=== PATIENT | female | born 1990 | race Two or more races ===

== ENCOUNTER 2016-12-22 16:11 | Inpatient (IN) | payer OTHER ==
[2016-12-22] MEDS ORDERED: RINGERS SOLUTION,LACTATED 1,000 ML IV PRN (16:39)
[2016-12-22] MEDS ORDERED: RINGERS SOLUTION,LACTATED 300 ML IV ONE (16:39)
[2016-12-22] MEDS ORDERED: OXYTOCIN/NORMAL SALINE 20 UNIT/1,000 ML RTUINJ ONE (16:39)
[2016-12-22] MEDS ORDERED: LIDOCAINE 1% INJ-PF (10 MG/ML) 30 ML SDV ONE (16:39)
[2016-12-22] MEDS ORDERED: MISOPROSTOL 0.2 MG TABLET ONE (16:39)
[2016-12-22] MEDS ORDERED: ZOLPIDEM TARTRATE 5 MG TABLET PO PRN (16:51)
[2016-12-22] MEDS ORDERED: OXYTOCIN/NORMAL SALINE 1,000 ML IV PRN (16:51)
[2016-12-22] MEDS ORDERED: ACETAMINOPHEN WITH CODEINE #3 TABLET PO PRN ×2 (16:51)
[2016-12-22] MEDS ORDERED: DIBUCAINE 1% OINTMENT 28 GM TP PRN (16:51)
[2016-12-22] MEDS ORDERED: DIPH/PERTUSS(ACELL)/TETANUS VAC/PF 0.5 ML SYR (>=10YO) IM PRN (16:51)
[2016-12-22] MEDS ORDERED: MEASLES,MUMPS&RUBELLA VACC/PF 0.5 ML VIAL SUBCUT PRN (16:51)
[2016-12-22] MEDS ORDERED: BENZOCAINE/MENTHOL AEROSOL SPRAY 56 ML TOP PRN (16:51)
[2016-12-22 17:10] LABS: ABSOLUTE LYMPHOCYTES (AUTO) 2.7 10^3/uL (0.5-4.7); ABSOLUTE MONOCYTES (AUTO) 1.2 10^3/uL (0.1-1.4); ABSOLUTE NEUT (AUTO) 10.7 10^3/uL (1.7-8.2); BASOPHILS % (AUTO) 0.3 % (0-2); EOSINOPHILS % (AUTO) 0.1 % (0-6); HEMATOCRIT 36.4 % (36.0-47.0); HGB HCT DIFFERENCE -0.4; LYMPHOCYTES % (AUTO) 18.6 % (13-45); MEAN CORPUSCULAR HEMOGLOBIN 31.3 pg (27.0-33.4); MEAN CORPUSCULAR VOLUME 95 fl (80-97); RED BLOOD COUNT 3.83 10^6/uL (3.72-5.28); RED CELL DISTRIBUTION WIDTH 13.9 % (11.5-14.0); WHITE BLOOD COUNT 14.6 10^3/uL (4.0-10.5)
--- NOTE | 2016-12-22 18:00 | L&D Flow Sheet ---
LD Flowsheet Datetime Report Generated by CPN: 12/22/2016 18:00 Datetime: 12/22/2016 17:42 Vital Signs NBP Sys/Nevaeh/Mean (mmHg): 192 (QS system process) : 72 (QS system process) : 103 (QS system process) Pulse: 59 (QS system process) Datetime: 12/22/2016 17:35 Comments: FHTs 90s (Dorita Rucker RN) Datetime: 12/22/2016 17:30 Uterine Activity Monitor Mode: External; Palpation (Dorita Rucker RN) Frequency (min): 1-2 (Dorita Rucker RN) Quality: Moderate to Strong (Dorita Rucker RN) Duration (sec): 60-90 (Dorita Rucker RN) Duration Criteria: Less than Two 120 Second Contractions (Dorita Rucker RN) Resting Tone (Palpate): Relaxed (Dorita Rucker RN) Comments: FHTs in 90s (Dorita Rucker RN) Stage 2 Pushing: Coached on Pushing (Dorita Rucker RN) Pushing Position: Pushing with Contractions; Pushing Left Side (Dorita Rucker RN) Pushing Progress: Descent with Pushing (Dorita Rucker RN) Datetime: 12/22/2016 17:24 Actions for Decelerations: IV Bolus (Dorita Rucker RN) Vaginal Exam Dilatation (cm): 10.0 (Dorita Rucker RN) Effacement (%): 100 (Dorita Rucker RN) Station: 2 (Dorita Rucker RN) Exam by: Dr Eloy (Dorita Rucker, RN) Stage 2 Pushing: Coached on Pushing; Urge to Push (Dorita Rucker RN) Pushing Position: Pushing with Contractions (Dorita Rucker RN) Pushing Progress: Descent with Pushing (Dorita Rucker RN) Preparation for Delivery: Setup for Delivery (Dorita Rucker RN) Datetime: 12/22/2016 17:22 Vaginal Exam Dilatation (cm): 9.5 (Dorita Rucker RN) Effacement (%): 100 (Dorita Rucker, RN) Station: 2 (Dorita Rucker, RN) Exam by: Dr Eloy (Dorita Rucker, RN) Communication Communication Comments: Dr Eloy at bedside (Dorita Rucker, RN) Datetime: 12/22/2016 17:21 Communication Communication Comments: RN and provider to remain at bedside throughout pushing continuously monitoring FHTs and contractions (Dorita Rucker, RN) Datetime: 12/22/2016 17:01 Patient Care Patient Position/Activity: Left Lateral (Dorita Rucker, RN) Datetime: 12/22/2016 17:00 Uterine Activity Monitor Mode: External; Palpation (Dorita Rucker, RN) Frequency (min): 1-3 (Dorita Rucker, RN) Quality: Moderate (Dorita Rucker, RN) Duration (sec): 60-100 (Dorita Rucker, RN) Resting Tone (Palpate): Relaxed (Dorita Rucker, RN) Assessment A Monitor Mode: External US (Dorita Rucker, RN) FHR Baseline Rate : 125 (Dorita Rucker, RN) Variability: Moderate 6-25 bpm (Dorita Rucker, RN) Accelerations: None (Dorita Rucker, RN) Decelerations: Early (Dorita Rucker, RN) Datetime: 12/22/2016 16:41 Vital Signs NBP Sys/Nevaeh/Mean (mmHg): 138 (QS system process) : 88 (QS system process) : 109 (QS system process) Pulse: 59 (QS system process) Datetime: 12/22/2016 16:39 Respirations: 18 (Dorita Rucker, RN) Temperature (F): 98.0 (Dorita Rucker, RN) Temperature (C): 36.7 (QS system process) Datetime: 12/22/2016 16:24 Vaginal Exam Dilatation (cm): 7.5 (Dorita Rucker RN) Effacement (%): 100 (Dorita Rucker RN) Station: -2 (Dorita Rucker RN) Exam by: Keyona Hsu CNM (Dorita Rucker RN) Datetime: 12/22/2016 16:23 Membrane Status: Ruptured (Dorita Rucker RN) Membranes Ruptured Date/Time: 12/22/2016 16:23 (Dorita Rucker RN) Membranes Rupture Method: Spontaneous (Dorita Rucker RN) Amniotic Fluid Color: Clear (Dorita Rucker RN) Amniotic Fluid Amount: Moderate (Dorita Rucker RN) Amniotic Fluid Odor: Normal (Dorita Rucker RN) Vaginal Bleeding: Normal Show (Dorita Rucker RN)
[2016-12-22] MEDS ORDERED: IBUPROFEN 800 MG TABLET ONE (18:07)
--- NOTE | 2016-12-22 19:14 | Delivery Summary ---
Del Sum A-C Datetime Report Generated by CPN: 12/22/2016 19:13 ADMISSION DATA Chief Complaint: Uterine Contractions; Suspected Ruptured Membranes Indication for Induction: Not Applicable Admission Impression: Term, Intrauterine ; Ruptured Membranes Admit Provider Comments: anticipate vaginal delivery soon. may attempt epidural if able to hydrate and labs back before delivery DELIVERY PERSONNEL Delivery Doctor:: Kamilah Lyons MD Labor and Delivery Nurse:: Dorita Rucker RNatm servicer Nurse:: Latoya Marie RN Statistical Programmer Analyst/MULTIMEDIA DESIGNER: Monica Gabriel, ST MATERNAL INFORMATION Delivery Anesthesia: None Medications After Delivery: Pitocin Bolus-Please Comment; Pitocin Drip 20 Units/1000ml NSS Estimated Blood Loss (ml): 200 Maternal Complications: Precipitous Labor (<3hrs) LABOR SUMMARY EDC: 12/27/2016 00:00 No. Babies in Womb: 1 Attempted: No Labor Anesthesia: None LABOR INFORMATION Reason for Induction: Not Applicable Onset of Labor: 12/22/2016 14:15 Complete Dilatation: 12/22/2016 17:24 Oxytocin: N/A Group B Beta Strep: negative Antibiotics # of Doses: 0 Antibiotics Time of Last Dose: 0 Steroids Given: None Reason Steroids Not Administered: Not Applicable MEMBRANES Membranes Rupture Method: Spontaneous Rupture of Membranes: 12/22/2016 16:23 Length of Rupture (hr): 1.28 Amniotic Fluid Color: Clear Amniotic Fluid Amount: Moderate Amniotic Fluid Odor: Normal STAGES OF LABOR Stage 1 hr: 3 Stage 1 min: 9 Stage 2 hr: 0 Stage 2 min: 16 Stage 3 hr: 0 Stage 3 min: 4 Total Time in Labor hr: 3 Total Time in Labor min: 29 VAGINAL DELIVERY Episiotomy: None Laceration Extension: Second Degree Laceration Type: Perineal; Vaginal Other Laceration: 1st degree labial Laceration Repair: Yes Laceration Repair Note: deep 2nd degree vaginal and perineal lac repaired with 2-0 chromic in normal fashion (Annotations: Data stored by [facility] on behalf of user) CSECTION DELIVERY Primary Indication: N/A Secondary Indication: N/A CSection Incidence: N/A Labor: N/A Elective: N/A CSection Incision: N/A BABY A INFORMATION Delivery Date/Time: 12/22/2016 17:40 Method of Delivery: Vaginal Born in Route : No : N/A Forceps: N/A Vacuum Extraction: N/A Shoulder Dystocia : No PRESENTATION/POSITION BABY A Presentation: Cephalic Cephalic Presentation: Vertex Vertex Position: Left Occipital Anterior Breech Presentation: N/A PLACENTA INFORMATION BABY A Placenta Delivery Time : 12/22/2016 17:44 Placenta Method of Delivery: Spontaneous Placenta Status: Delivered SCORES BABY A Heart Rate 1 min: >100 bpm Resp Effort 1 min: Good Cry Reflex Irritability 1 min: Cough or Sneeze or Pulls Away Muscle Tone 1 min: Active Motion Color 1 min: Body [place], Extremities Blue Resuscitation Effort 1 min: N/A SCORE 1 MIN: 9 Heart Rate 5 min: >100 bpm Resp Effort 5 min: Good Cry Reflex Irritability 5 min: Cough or Sneeze or Pulls Away Muscle Tone 5 min: Active Motion Color 5 min: Body [place], Extremities Blue SCORE 5 MIN: 9 INFORMATION BABY A Gestational Age at Delivery: 39.2 Gestational Status: Full Term- 39- 40.6 Weeks Outcome : Liveborn Condition : Stable Infant Sex: Male IDENTIFICATION BABY A Infant Verification Date/Time: 12/22/2016 18:03 ID Band Number: [id number] Mother's Name Verified: Yes RN Verifying : D Bellavance RNC Additional Verifying Personnel: K Klaus RNC WEIGHT/LENGTH BABY A Infant Birthweight (gm): 3320 Weight (lb): 7 Weight (oz): 5 Infant Length (in): 20.00 Length (cm): 50.80 CORD INFORMATION BABY A No. Cord Vessels: 3 Nuchal Cord : N/A Cord Blood Taken: Yes-For Eval (Mom's Blood Type - or O+) Suction: Mouth; Nose ASSESSMENT BABY A Infant Complications: Extended Bradycardia Physical Findings at Delivery: Within Normal Limits Respirations: Appears Normal Skin to Skin: Yes Skin to Skin Time (min): 60 Tree Scout/ALS Called : No Infant Care By: Jefferson Marie RN Transferred To: Remains with Mother BABY B INFORMATION : N/A
--- NOTE | 2016-12-22 20:41 | Admission Physical ---
Datetime Report Generated by CPN: 12/22/2016 20:41 CURRENT ADMISSION Chief Complaint: Uterine Contractions; Suspected Ruptured Membranes Indication for Induction: Not Applicable Admit Plan: Admit to Unit; Initiate Labor Protocol; Initiate Labor Augmentation Protocol ALLERGIES Medication Allergies: No Medication Allergies: No Known Allergies (12/22/2016) Latex: No Latex Allergies OBSTETRICAL HISTORY EDC: 12/27/2016 00:00 : 1 Para: 0 Gestational Diabetes: No Rh Sensitization: No Incompetent Cervix: No BENJIE: No Infertility: No ART Treatment: No Uterine Anomaly: No IUGR: No Hx Previous C/S: No Macrosomia: No Hx Loss/Stillborn: No PIH: No Hx : No Placenta Previa/Abruption: No Depression/PP Depression: No PTL/PROM: No Post Hemorrhage: No Current Procedures: Ultrasound; NST Obstetrical History Comments: G1: current SEE RECORDS Alcohol: No Marijuana : No Cocaine: No Other Illicit Drugs: No Cigarettes: Former Smoker. [id number] MEDICAL HISTORY Diabetes: No Blood Transfusion: No Pulmonary Disease (Asthma, TB): No Breast Disease: No Hypertension: No Typewriter Operator Automatic Surgery: No Heart Disease: No Hosp/Surgery: No Autoimmune Disorder: No Anesthetic Complications: No Kidney Disease: No Abnormal Pap Smear: No Neuro/Epilepsy: No Psychiatric Disorders: No Other Medical Diseases: No Hepatitis/Liver Disease: No Significant Family History: No Varicosities/Phlebitis: No Trauma/Violence : No Thyroid Dysfunction: No Medical History Comments: anemia INFECTIOUS HISTORY Gonorrhea: No Genital Herpes: No Chlamydia: No Tuberculosis: No Syphilis: No Hepatitis: No HIV/AIDS Exposure: No Rash or Viral Illness: No HPV: No PHYSICAL EXAM General: Normal HEENT: Normal Neurologic: Normal Thyroid: Normal Heart: Normal Lungs: Normal Breast: Normal Back: Normal Abdomen: Normal Genitourinary Exam: Normal Extremities: Normal DTRs: Normal Pelvic Type: Adequate Vital Signs: Reviewed VAGINAL EXAM Dilatation: 7 Effacement: 90 Station: -1 MEMBRANES Pooling: Positive Membranes: Ruptured Amniotic Fluid Color: Clear FETUS A EGA: 39.2 Monitoring: External US FHR- Baseline: 140 Variability: Moderate 6-25bpm Accelerations: 10X10 FHR Category: Category I Estimated Weight (gm): 3400 Presentation: Vertex Admit Comment: anticipate vaginal delivery soon. may attempt epidural if able to hydrate and labs back before delivery PLANS FOR LABOR AND DELIVERY Labor and Delivery: None Pain Management: Epidural Feeding Preference: Both Benefit of Breast Feed Discussed: Yes Circumcision: No INFORMED CONSENT Signature: with User ID: [email or web address]
[2016-12-22] MEDS: DOCUSATE SODIUM 100 MG CAPSULE PO SCH (22:27)
[2016-12-22] MEDS: FERROUS SULFATE 325 MG TABLET PO SCH (22:27)
[2016-12-22 22:52] LABS: APPEARANCE,URINE CLOUDY; BILIRUBIN,URINE NEGATIVE (NEGATIVE); GLUCOSE, URINE NEGATIVE (NEGATIVE); KETONES,URINE NEGATIVE (NEGATIVE); LEUKOCYTE ESTERASE,URINE SMALL (NEGATIVE); NITRITE,URINE NEGATIVE (NEGATIVE); PROTEIN,URINE 100 mg/dL (NEGATIVE); URINE SPECIFIC GRAVITY 1.008; UROBILINOGEN,URINE NEGATIVE mg/dL (<2.0)
[2016-12-22 23:20] LABS: URINE BARBITURATES SCREEN NEGATIVE; URINE METHADONE SCREEN NEGATIVE; URINE OPIATES LOW NEGATIVE; URINE PHENCYCLIDINE SCREEN NEGATIVE
[2016-12-23] MEDS: IBUPROFEN 800 MG TABLET PO SCH ×3 (01:25→17:37)
--- NOTE | 2016-12-23 07:00 | L&D Flow Sheet ---
LD Flowsheet Datetime Report Generated by CPN: 12/23/2016 07:00 Datetime: 12/22/2016 20:26 NBP Sys/Nevaeh/Mean (mmHg): 113 (QS system process) : 60 (QS system process) : 80 (QS system process) Pulse: 83 (QS system process) Respirations: 16 (Fidelina Davis RN) Temperature (F): 98.3 (Fidelina Davis RN) Temperature (C): 36.8 (QS system process) Temperature Route: Oral (Fidelina Davis RN) Pain Scale: 1 (Fidelina Davis RN) Pain Presence: Intermittent (Fidelina Davis RN) Pain Type: Dull (Fidelina Davis RN) Pain Location: Perineum (Fidelina Davis RN) Datetime: 12/22/2016 19:30 Pain Scale: 2 (Fidelina Davis RN) Pain Presence: Constant (Fidelina Davis RN) Pain Type: Cramping (Fidelina Davis RN) Pain Location: Abdomen; Perineum (Fidelina Davis RN) Pain Relief Measures: Comfort Measures (Fidelina Davis RN) Datetime: 12/22/2016 19:00 Stage of : Recovery (Dorita Rucker RN) Pain Scale: 3 (Dorita Rucker RN) Pain Presence: Constant (Dorita Rucker RN) Pain Type: Burning; Cramping; Ache (Dorita Rucker RN) Pain Location: Perineum (Dorita Rucker RN)
[2016-12-23 07:40] LABS: HEMATOCRIT 32.5 % (36.0-47.0); HEMOGLOBIN 10.9 g/dL (12.0-15.5); HGB HCT DIFFERENCE 0.2; MEAN CORPUSCULAR HEMOGLOBIN 31.6 pg (27.0-33.4); MEAN CORPUSCULAR HGB CONC 33.4 g/dL (32.0-36.0); MEAN CORPUSCULAR VOLUME 95 fl (80-97); RED BLOOD COUNT 3.44 10^6/uL (3.72-5.28); WHITE BLOOD COUNT 17.3 10^3/uL (4.0-10.5)
[2016-12-23] MEDS: PRENATAL VITAMIN W-O CA NO5/FE FUMARATE/FA CAPSULE PO SCH (10:15)
[2016-12-23] MEDS: DOCUSATE SODIUM 100 MG CAPSULE PO SCH ×2 (10:15→17:37)
[2016-12-23] MEDS: FERROUS SULFATE 325 MG TABLET PO SCH ×2 (10:15→17:37)
[2016-12-23] MEDS: SENNOSIDES/DOCUSATE 8.6-50 MG 1 EACH TABLET PO SCH (10:17)
--- NOTE | 2016-12-23 11:50 | PDOC PROGRESS REPORT ---
Subjective-OB Subjective: Post Delivery Day: 26 year old. Denies any needs at this time. Pt doing well, no concerns. She reports light bleeding, regular diet and voiding without difficulty. Physical Exam (OB) Vital Signs: Temp Pulse Resp BP Pulse Ox 98.1 F 49 L 15 112/59 L 100 12/23/16 07:26 12/23/16 07:26 12/23/16 07:26 12/23/16 07:26 12/23/16 07:26 Intake & Output 12/22/16 12/23/16 12/24/16 06:59 06:59 06:59 Weight 66.35 kg - Lochia Lochia Amount: Small 10-25 ml Lochia Color: Rubra/Red - Abdomen Description: Tender, Soft Hernia Present: No Fundal Description: Firm, Midline Fundal Height: u/u - u/2 Objective-Diagnostic Laboratory: 12/23/16 07:14 12/22/16 12/22/16 12/22/16 16:47 16:47 22:30 WBC 14.6 H RBC 3.83 Hgb 12.0 Hct 36.4 MCV 95 MCH 31.3 MCHC 33.0 RDW 13.9 Plt Count 257 Seg Neutrophils % 73.0 Lymphocytes % 18.6 Monocytes % 8.0 Eosinophils % 0.1 Basophils % 0.3 Absolute Neutrophils 10.7 H Absolute Lymphocytes 2.7 Absolute Monocytes 1.2 Absolute Eosinophils 0.0 Absolute Basophils 0.0 Urine Color RED Urine Appearance CLOUDY Urine pH 6.0 Ur Specific [place] 1.008 Urine Protein 100 H Urine Glucose (UA) NEGATIVE Urine Ketones NEGATIVE Urine Blood LARGE H Urine Nitrite NEGATIVE Ur Leukocyte Esterase SMALL H Blood Type O POSITIVE Antibody Screen NEGATIVE 12/23/16 07:14 WBC 17.3 H RBC 3.44 L Hgb 10.9 L Hct 32.5 L MCV 95 MCH 31.6 MCHC 33.4 RDW 14.0 Plt Count 226 Seg Neutrophils % Lymphocytes % Monocytes % Eosinophils % Basophils % Absolute Neutrophils Absolute Lymphocytes Absolute Monocytes Absolute Eosinophils Absolute Basophils Urine Color Urine Appearance Urine pH Ur Specific [place] Urine Protein Urine Glucose (UA) Urine Ketones Urine Blood Urine Nitrite Ur Leukocyte Esterase Blood Type Antibody Screen Assessment and Plan(PN) - Assessment and Plan (1) Vaginal delivery Is this a current diagnosis for this admission?: Yes - Time Spent with Patient Time with patient: Less than 15 minutes Medications reviewed and adjusted accordingly: Yes - Disposition Anticipated Discharge: Home Within: within 24 hours
--- NOTE | 2016-12-23 18:01 | L&D Current Admission ---
Current Admit Datetime Report Generated by CPN: 12/23/2016 18:00 ADMISSION INFORMATION Reason for Admission: Onset of Labor (12/22/2016 16:32:Dorita Rucker RN) Chief Complaint: Contractions (12/22/2016 16:30:Dorita Rucker RN) Method of Arrival: Ambulatory (12/22/2016 16:32:Dorita Rucker RN) Admitted From: Home (12/22/2016 16:32:Dorita Rucker RN) Reason for Induction: Not Applicable (12/22/2016 16:32:Dorita Rucker RN) Records Available: Yes (12/22/2016 16:32:Dorita Rucker RN) General Admission Information: Reviewed (12/22/2016 16:32:Dorita Rucker RN) General Admission Reviewed By: Keyona Rucker RN (12/22/2016 16:32:Dorita Rucker RN) BELONGINGS/ADVANCED DIRECTIVES Valuables/Personal Effects: None (12/22/2016 16:32:Dorita Rucker RN) Other Belongings: see consents (12/22/2016 16:32:Dorita Rucker RN) Disposition of Belongings: Kept with Patient (12/22/2016 16:32:Dorita Rucker RN) Advance Direct for Healthcare: No, and Wants No Information (12/22/2016 16:32:Dorita Rucker RN) Durable Power of Paralegal Assistant: No (12/22/2016 16:32:Dorita Rucker RN) Living Will: No (12/22/2016 16:32:Dorita Rucker RN) Organ Donor: Yes (12/22/2016 16:32:Dorita Rucker RN) Pt Rights Information Given: Yes (12/22/2016 16:32:Dorita Rucker RN) Pt Understands Pt Rights: Yes (12/22/2016 16:32:Dorita Rucker RN) LEARNING ASSESSMENT Knowledge Level: Understands L_D Process; Understands Care Activities; Had Pre-Hospital Education (12/22/2016 16:32:Dorita Rucker RN) Barriers to Learning: None (12/22/2016 16:32:Dorita Rucker RN) Learning Readiness: Motivated (12/22/2016 16:32:Dorita Rucker RN) Learns Best By: 1 to 1 Instruction (12/22/2016 16:32:Dorita Rucker RN) Learning Needs: Labor and Delivery Process; Pain Management; Symptoms to Report; Treatment Plan; Medication; Diagnosis; Nutrition; Equipment; Infant Care; Community Resources (12/22/2016 16:32:Dorita Rucker RN) DOMESTIC VIOLANCE SCREENING Dom Viol Threatened/Hurt: No (12/22/2016 16:32:Dorita Rucker RN) Hx of Abuse/Neglect past 2yrs: No (12/22/2016 16:32:Dorita Rucker RN) Feel Unsafe Going Home: No (12/22/2016 16:32:Dorita Rucker RN) Addt'l Observ Indicating Abuse: No (12/22/2016 16:32:Dorita Rucker RN) Reason Unable to Complete Screen: N/A, Screen Completed (12/22/2016 16:32:Dorita Rucker RN) Considered Personal Harm/Suicide: No (12/22/2016 16:32:Dorita Rucker RN) NUTRITIONAL/FUNCTIONAL SCREENING Problem with Appetite >5 Days: No (12/22/2016 16:32:Dorita Rucker RN) Chew/Swallow Difficulties: No (12/22/2016 16:32:Dorita Rucker RN) Inappropriate Wt Gain/Loss: No (12/22/2016 16:32:Dorita Rucker RN) Presence Skin Breakdown/Ulcer: No (12/22/2016 16:32:Dorita Rucker RN) Special Diet: No (12/22/2016 16:32:Dorita Rucker RN) Pt Requests Tanker Serviceman Visit: No (12/22/2016 16:32:Dorita Rucker RN) Hx of Any of the Following?: N/A (12/22/2016 16:32:Dorita Rucker RN) New Diagnosis of: N/A (12/22/2016 16:32:Dorita Rucker RN) Requires Assist w/Ambulation: No (12/22/2016 16:32:Dorita Rucker RN) Uses Assist Device to Ambulate: No (12/22/2016 16:32:Dorita Rucker RN) Pt Requires Help w/ADL's: No (12/22/2016 16:32:Dorita Rucker RN)
--- NOTE | 2016-12-23 18:01 | L&D General Admission ---
General Admit Datetime Report Generated by CPN: 12/23/2016 18:00 INFORMATION Patient Age: 26 (12/01/2016 15:35:QS system process) EDC: 12/27/2016 00:00 (12/22/2016 16:29:NOEMI Conner) : 1 (12/22/2016 16:29:Dorita Rucker RN) Para: 0 (12/22/2016 16:29:Dorita Rucker RN) Baby, Number in Womb: 1 (12/22/2016 16:29:Dorita Rucker RN) CARE Primary Specimen Transporter: [facility] (12/22/2016 16:29:Dorita uRcker RN) Height (in): 62 (12/22/2016 20:40:QS system process) ALLERGIES Medication Allergy: No (12/22/2016 16:29:Dorita Rucker RN) Medication Allergies: No Known Allergies (12/22/2016) (12/22/2016 18:27:QS system process) Latex Allergy: No Latex Allergies (12/22/2016 16:29:Dorita Rucker RN) COMMUNICATION Primary Language: Angolan (12/22/2016 16:29:Dorita Rucker RN) Medical Tx Preferred Language: Angolan (12/22/2016 16:29:Dorita Rucker RN) DEMOGRAPHICS Address: [address] [place] [address] [place] [address] (12/01/2016 15:35:QS system process) Zipcode: [address] (12/01/2016 15:35:QS system process) Home (12/01/2016 15:35:QS system process) SSN: [id number] (12/01/2016 15:35:QS system process) Next of Kin Name: SEAN DE LEON (12/01/2016 15:35:QS system process) Next of Kin (12/01/2016 15:35:QS system process) Next of Kin Relationship: OR (12/01/2016 15:35:QS system process) Date of : 1990 (12/01/2016 15:35:QS system process) Marital Status: Single (12/01/2016 15:35:QS system process) Sex: Female (12/01/2016 15:35:QS system process) Race: Other (12/01/2016 15:35:QS system process) Ethnicity: Non- or (12/01/2016 15:35:QS system process) Pentecostal: None (12/01/2016 15:35:QS system process) DRUG AND ALCOHOL USE Alcohol: No (12/22/2016 16:29:Dorita Rucker RN) Cigarettes: Former Smoker. [id number] (12/22/2016 16:29:Dorita Rucker RN) Marijuana: No (12/22/2016 16:29:Dorita Rucker RN) Cocaine: No (12/22/2016 16:29:Dorita Rucker RN) Other Illicit Drugs: No (12/22/2016 16:29:Dorita Rucker RN) VACCINE HISTORY Influenza Vaccine: Yes (12/22/2016 16:29:Dorita Rucker RN) Pneumococcal Vaccine: No (12/22/2016 16:29:Dorita Rucker RN) Tetanus Vaccine: Uncertain (12/22/2016 16:29:Dorita Rucker RN) Tdap Vaccine: Uncertain (12/22/2016 16:29:Dorita Rucker RN) Hepatitis B Vaccine: Uncertain (12/22/2016 16:29:Dorita Rucker RN) Music Agent: [facility] (12/22/2016 16:29:Dorita Rucker RN) Feeding Preference: Both (12/22/2016 16:29:Dorita Rucker RN) Benefit of Breast Feed Discussed: Yes (12/22/2016 16:29:Dorita Rucker RN) Circumcision: No (12/22/2016 16:29:Dorita Rucker RN) Classes Attended: No (12/22/2016 16:29:Dorita Rucker RN) Tubal Ligation: No (12/22/2016 16:29:Dorita Rucker RN) Tubal Authorization Signed: N/A (12/22/2016 16:29:Dorita Rucker RN) Consent: Yes (12/22/2016 16:29:Dorita Rucker RN) Consent Signed: Yes (12/22/2016 16:29:Dorita Rucker RN) Pain Management Plans: Epidural (12/22/2016 16:29:Dorita Rucker RN) Plans for Labor and Delivery: None (12/22/2016 16:29:Dorita Rucker RN) Support Person: Sean Currie (12/22/2016 16:29:Dorita Rucker RN) Support Person Relationship: Significant Other (12/22/2016 16:29:Dorita Rucker RN) Cultural/Spritual Practice: No (12/22/2016 16:29:Dorita Rucker RN) Spir/Cult Dietary Needs: No (12/22/2016 16:29:Dorita Rucker RN) LIVING SITUATION/DISCHARGE PLAN Living Arrangements: House (12/22/2016 16:29:Dorita Rucker RN) Adequate Access to:: Electric; Heat; Refrigeration; Plumbing/Running water; Phone; Transportation (12/22/2016 16:29:Dorita Rucker RN) WIC Program: No (12/22/2016 16:29:Dorita Rucker RN) Discharge Edger Automatic Person: FOB (12/22/2016 16:29:Dorita Rucker RN) Person to Help after Discharge: FOB (12/22/2016 16:29:Dorita Rucker RN) Currently Using Commun Resources: No (12/22/2016 16:29:Dorita Rucker RN) Outside Agency/Cat Swamper: No (12/22/2016 16:29:Dorita Rucker RN) Car Seat for Discharge: Yes (12/22/2016 16:29:Dorita Rucker RN) Adoption Requested: No (12/22/2016 16:29:Dorita Rucker RN) Pt Contact w/infant Post : N/A (12/22/2016 16:29:Dorita Rucker RN) LABS Blood Type: O Positive (12/22/2016 16:29:Dorita Rucker RN) Antibody Screen: negative (12/22/2016 16:29:Dorita Rucker RN) Hemoglobin: 10.9 L (12/23/2016 07:14:QS system process) Hematocrit: 32.5 L (12/23/2016 07:14:QS system process) MCV: 95 (12/23/2016 07:14:QS system process) Group Beta Strep: negative (12/22/2016 16:29:Dorita Rucker RN) Gonorrhea: Negative (12/22/2016 16:29:Dorita Rucker RN) Chlamydia: Negative (12/22/2016 16:29:Dorita Rucker RN) RPR/VDRL: Nonreactive (12/22/2016 16:29:Dorita Rucker RN) Hepatitis B: Negative (12/22/2016 16:29:Dorita Rucker RN) Rubella: Immune (12/22/2016 16:29:Dorita Rucker RN) OB/PREVIOUS HISTORY Current Procedures: Ultrasound; NST (12/22/2016 16:29:Dorita Rucker RN) History of Previous : No (12/22/2016 16:29:Dorita Rucker RN) History of Gestational Diabetes: No (12/22/2016 16:29:Dorita Rucker RN) History of PIH: No (12/22/2016 16:29:Dorita Rucker RN) History of Incompetent Cervix: No (12/22/2016 16:29:Dorita Rucker RN) History of Placenta Previa/Abrup: No (12/22/2016 16:29:Dorita Rucker RN) History of Macrosomia: No (12/22/2016 16:29:Dorita Rucker RN) History of IUGR: No (12/22/2016 16:29:Dorita Rucker RN) History of Hemorrhage: No (12/22/2016 16:29:Dorita Rucker RN) History of Loss/Stillborn: No (12/22/2016 16:29:Dorita Rucker RN) History of : No (12/22/2016 16:29:Dorita Rucker RN) History of D (Rh) Sensitization: No (12/22/2016 16:29:Dorita Rucker RN) History Recurrent Loss/Stillborn: No (12/22/2016 16:29:Dorita Rucker RN) History Depression/PP Depression: No (12/22/2016 16:29:Dorita Rucker RN) History of Uterine Anomaly/BENJIE: No (12/22/2016 16:29:Dorita Rucker RN) History of Infertility: No (12/22/2016 16:29:Dorita Rucker RN) History of ART Treatment: No (12/22/2016 16:29:Dorita Rucker RN) History of BENJIE: No (12/22/2016 16:29:Dorita Rucker RN) Comments Obstetrical History: G1: current (12/22/2016 16:29:Dorita Rucker RN) MEDICAL HISTORY Med Hx Diabetes: No (12/22/2016 16:29:Dorita Rucker RN) Med Hx Hypertension: No (12/22/2016 16:29:Dorita Rucker RN) Med Hx Heart Disease: No (12/22/2016 16:29:Dorita Rucker RN) Med Hx Autoimmune Disorder: No (12/22/2016 16:29:Dorita Rucker RN) Med Hx Kidney Disease/UTI: No (12/22/2016 16:29:Dorita Rucker RN) Med Hx Neurologic/Epilepsy: No (12/22/2016 16:29:Dorita Rucker RN) Med Hx Psychiatric Disorders: No (12/22/2016 16:29:Dorita Rucker RN) Med Hx Hepatitis/Liver Disease: No (12/22/2016 16:29:Dorita Rucker RN) Med Hx Varicosities/Phlebitis: No (12/22/2016 16:29:Dorita Rucker RN) Med Hx Thyroid Dysfunction: No (12/22/2016 16:29:Dorita Rucker RN) Med Hx Trauma/Violence: No (12/22/2016 16:29:Dorita Rucker RN) Med Hx Blood Transfusion: No (12/22/2016 16:29:Dorita Rucker RN) Med Hx Pulmonary (Asthma,TB): No (12/22/2016 16:29:Dorita Rucker RN) Med Hx Breast: No (12/22/2016 16:29:Dorita Rucker RN) Med Hx VETERINARIAN SMALL ANIMAL Surgery: No (12/22/2016 16:29:Dorita Rucker RN) Med Hx Hospitalization/Surgery: No (12/22/2016 16:29:Dorita Rucker RN) Med Hx Anesthetic Complications: No (12/22/2016 16:29:Dorita Rucker RN) Med Hx Abnormal Pap Smear: No (12/22/2016 16:29:Dorita Rucker RN) Other Medical Diseases: No (12/22/2016 16:29:Dorita Rucker RN) Med Hx Significant Family Hx: No (12/22/2016 16:29:Dorita Rucker RN) Details of Med/Surg Hx: anemia (12/22/2016 16:29:Dorita Rucker RN) INFECTIOUS HISTORY Inf Hx Gonorrhea: No (12/22/2016 16:29:Dorita Rucker RN) Inf Hx Chlamydia: No (12/22/2016 16:29:Dorita Rucker RN) Inf Hx Syphilis: No (12/22/2016 16:29:Dorita Rucker RN) Inf Hx HIV/AIDS: No (12/22/2016 16:29:Dorita Rucker RN) Inf Hx Human Papilloma Virus: No (12/22/2016 16:29:Dorita Rucker RN) Inf Hx Pt/Partner Genital Herpes: No (12/22/2016 16:29:Dorita Rucker RN) Inf Hx Tuberculosis/Exposure: No (12/22/2016 16:29:Dorita Rucker RN) Inf Hx Hepatitis B,C: No (12/22/2016 16:29:Dorita Rucker RN) Inf Hx Rash or Viral Illness: No (12/22/2016 16:29:Dorita Rucker RN) GENETIC HISTORY Gen Hx Age >=35 at SUNIL: No (12/22/2016 16:29:Dorita Rucker RN) Gen Hx Thalassemia: No (12/22/2016 16:29:Dorita Rucker RN) Gen Hx Congenital Heart Defect: No (12/22/2016 16:29:Dorita Rucker RN) Gen Hx Neural Tube Defect: No (12/22/2016 16:29:Dorita Rucker RN) Gen Hx Down's Syndrome: No (12/22/2016 16:29:Dorita Rucker RN) Gen Hx Garry-Sachs: No (12/22/2016 16:29:Dorita Rucker RN) Gen Hx Donn: No (12/22/2016 16:29:Dorita Rucker RN) Gen Hx Familial Dysautonomia: No (12/22/2016 16:29:Dorita Rucker RN) Gen Hx Sickle Cell Disease/Trait: No (12/22/2016 16:29:Dorita Rucker RN) Gen Hx Hemophilia/Blood Disorder: No (12/22/2016 16:29:Dorita Rucker RN) Gen Hx Muscular Dystrophy: No (12/22/2016 16:29:Dorita Rucker RN) Gen Hx Cystic Fibrosis: No (12/22/2016 16:29:Dorita Rucker RN) Gen Hx Huntingtons Chorea: No (12/22/2016 16:29:Dorita Rucker RN) Gen Hx Mental Retardation/Autism: No (12/22/2016 16:29:Dorita Rucker RN) Gen Hx Tested for Fragile X: No (12/22/2016 16:29:Dorita Rucker RN) Gen Hx Other Inher/Chromosomal: No (12/22/2016 16:29:Dorita Rucker RN) Gen Hx Maternal Metabolic DO: No (12/22/2016 16:29:Dorita Rucker RN) Gen Hx Pt Father or FOB Defect: No (12/22/2016 16:29:Dorita Rucker RN) Gen Hx Other Genetic History: No (12/22/2016 16:29:Dorita Rucker RN) Gen Hx Drugs/Meds since LMP: Yes (12/22/2016 16:29:Dorita Rucker RN) Gen Hx Medications: PNV, iron (12/22/2016 16:29:Dorita Rucker RN)
--- NOTE | 2016-12-23 18:15 | L&D Care Plan ---
LD CARE PLANS Datetime Report Generated by CPN: 12/23/2016 18:15 Datetime: 12/22/2016 16:33 Pain State: Not Applicable (NOEMI Conner) Related To: Labor and Delivery Process (NOEMI Conner) Goal(s): Patients Pain will be Assessed and Managed; Patient will Verbalize Adequate Relief of Pain or the Ability to [place] with Current Pain (NOEMI Conner) Interventions: Assess Pain Severity on Scale of 0 (None) to 5 (Severe); Assess Type, Location and Intensity of Pain Each Time Client Reports Discomfort and Notify Provider if Unusal Pain Develops; Encourage Proper Breathing and Relaxation Techniques; Offer Alternatives Such as Repositioning, Calm Environment, Massages, Diversional Activities, Ice Pack, Splinting, and Ambulation; Administer Analgesics as Ordered; Assist with Epidural Placement as Appropriate; Evaluate Therapeutic Effectiveness of Medication and Treatments (NOEMI Conner) Outcome: Patient will Report Absence or Relief of Pain Consistent with Established Pain Goal (NOEMI Conner) Outcome: Patient will have a Decrease in Signs and Symptoms of Discomfort (NOEMI Conner) Outcome: Pain will be Controlled During Procedures (NOEMI Conner) Anxiety State: Actual (NOEMI Conner) Related To: Labor and Delivery Process (NOEMI Conner) Goal(s): Patient will have Decreased Anxiety and be able to Function at Acceptable Levels (NOEMI Conner) Interventions: Assess Verbal and Nonverbal Behavioral Indicators of Anxiety; Assist Patient to Identify and Verbalize Symptoms of Anxiety; Identify and Demonstrate Techniques to Control Anxiety; Assist Patient with Coping Mechanisms to Manage Anxiety; Provide Theraputic Touch for the Patient; Explain to Patient, Using a Calm Reassuring Approach and Nonmedical Terms, All Activities, Procedures, and Concerns; Instruct Patient and Family about Post Discharge Care, Limitations, Symptoms to Report and Resources Available (NOEMI Conner) Outcome: Patient will Identify, Verbalize and Demonstrate Techniques to Control Anxiety (NOEMI Conner) Outcome: Patient's Posture, Facial Expressions, Gestures and Activity Level will Reflect Decreased Anxiety (NOEMI Conner) Outcome: Patient will Verbalize a Sense of Control and/or Acceptance of the Situation (NOEMI Conner) Outcome: Patient will Identify and Utilize Support Person (NOEMI Conner) Knowledge Deficit State: Actual (NOEMI Conner) Related To: Labor and Delivery Process; Treatment and Procedures; Feeding and Care (NOEMI Conner) Goal(s): Patient will Accurately Verbalize Understanding of Plan of Care and Treatment; Patient and Family will Accurately Verbalize Understanding of the Disease Process (NOEMI Conner) Interventions: Assess Motivation and Willingness of Patient/Family to Learn; Assess Preferred Learning Mode: One to One Instruction, Reading, Videos, Group Discussion or Demonstration; Assess Barriers to Learning: Pain, Emotional State, Language Barrier, Cognitive Impairment, Visual or Hearing Deficits; Assess Patient and Family Knowledge of Disease Process, Medications and Treatment; Discuss Therapy and/or Treatment Options, Describe Rationale Behind Management, Therapy and Treatment Recommendations; Instruct Patient and Family on Signs and Symptoms to Report; Instruct Patient and Family on Medication Effects and Side Effects; Provide Appropriate and Timely Education Using Multiple Techniques; Provide Patient and Family with Support Group Information and Resources; Give Clear and Thorough Explanations and Demonstrations (NOEMI Conner) Outcome: Patient and Family will Verbalize Understanding of Condition, Treatment and Signs and Symptoms to Report (NOEMI Conner) Outcome: Patient will Identify Perceived Learning Needs and Express Motivation to Learn (NOEMI Conner) Outcome: Patient will Verbalize Understanding of Desired Content, and/or Performs Desired Skill Prior to Discharge (NOEMI Conner) Infection State: Risk For (NOEMI Conner) Related To: Prolonged Labor or Induction; Invasive Procedures (NOEMI Conner) Goal(s): The Patient will be Free of Infection, Vital Signs Stable and Lab Work within Normal Parameters (NOEMI Conner) Interventions: Instruct and Reinforce Proper Handwashing, Hygiene, and Care Techniques to Patient and Family; Monitor Vital Signs; Monitor Patient for the Following Signs of Infection: Fever, Abdominal Tenderness, Unusual Discharge; Monitor Aminiotic Fluid, Urine and Lochia for Color and Odor; Observe Wounds, Incisions and Invasive Line Sites for Redness, Drainage and Edema; Assess IV Sites per Hospital Policy; Monitor Lab and Test Results and Notify Provider of Abnormal Findings; Assess Nutritional Status and Promote Good Nutrition (NOEMI Conner) Outcome: Patient will Remain Free of Infection (NOEMI Conner) Outcome: Infection will be Recognized Early to Allow for Prompt Treatment (NOEMI Conner) Outcome: Patient will have Vital Signs Within Expected Range (NOEMI Conner) Fluid Volume State: Risk For (NOEMI Conner) Related To: Prolonged Labor or Induction; Anesthesia (NOEMI Conner) Goal(s): Patient will Achieve and Maintain a Balanced Fluid Volume Status; Hemodynamically Stable (NOEMI Conner) Interventions: Monitor Vital Signs; Auscultate Breath Sounds; Monitor Patient for Skin Turgor, Mucous Membranes, Dry Skin, Weakness, Headaches and Confusion; Provide Oral Fluids as Ordered; Initiate and Maintain Intravenous Fluids as Ordered; Monitor Intake and Output as Indicated Per Patient Status; Accurately Measure Blood Loss; Monitor Lab and Test Results as Obtained and Notify Provider of Abnormal Findings; Monitor Patient's Weight (NOEMI Conner) Outcome: Patient will have Clear Lung Sounds (NOEMI Conner) Outcome: Patient will have Vital Signs within Expected Range (NOEMI Conner) Outcome: Urine Output will be within Expected Range (NOEMI Conner) Outcome: Patient will have Minimal Generalized or Upper Extremity Edema (NOEMI Conner) Injury State: Risk For (NOEMI Conner) Related To: Labor and Delivery Process; Anesthesia; Decreased Mobility (NOEMI Conner) Goal(s): Patient will Remain Free from Injury (NOEMI Conner) Interventions: Monitoring as per Hospital Protocol; Assess Neurological Status; Perform Risk Assessment of Patients with Induction and ; Perform Fall Risk Assessment and Prevention per Hospital Protocol; Perform DVT Risk Assessment and Prophylaxis per Hospital Protocol; Ensure that Oxygen, Suction, and Resuscitation Medications and Equipment are Readily Available; Confirm Patient ID Prior to Procedure(s) and Medication Administration per Hospital Policy (NOEMI Conner) Outcome: Successful Fall Risk Prevention (NOEMI Conner) Outcome: Patient will Deliver without Adverse [place]ela (NOEMI Conner) Outcome: Patient's Neurological Status will Remain Stable (NOEMI Conner) Impaired Skin Integrity State: Risk For (NOEMI Conner) Related To: Vaginal Delivery; Surgical Procedures; Altered Tissue Integrity; Invasive Procedures (NOEMI Conner) Goal(s): Patient will Maintain Optimal Skin Integrity, Free of Breakdown, Injury or Infection (NOEMI Conner) Interventions: Complete Screening for Pressure Ulcer Risk and Initiate Protocol per Hospital Policy; Monitor Site of Skin Impairment for Color Changes, Redness, Swelling, Warmth, Pain or Other Signs of Infection; Encourage and Assist with Position Changes; Monitor Patient's Mobility Status; Provide Adequate Nutrition and Fluids; Teach Patient Appropriate Hygienic Care; Teach Patient/Family Skin Care Management (NOEMI Conner) Outcome: Patient will not have Evidence of Injury Such as Skin Breakdown, Scrapes, Cuts, or Bruising (NOEMI Conner) Outcome: Patient will Report Any Altered Sensation or Pain at Site of Skin Impairment (NOEMI Conner) Outcome: Patients Incisions and Wounds will be without Signs or Symptoms of Infection (NOEMI Conner) Outcome: Patient will Demonstrate Understanding of Plan to Heal Skin and Prevent Reinjury and Verbalize Risk Factors (Ashley Enrique RNC) Parenting Impaired State: Not Applicable (Ashley Klaus, RNC) Nutrition State: Not Applicable (Ashley Klaus, RNC) Grieving State: Not Applicable (Ashley Klaus, RNC) Additional Care Plan State: Not Applicable (Ashley Klaus, RNC)
[2016-12-24] MEDS: IBUPROFEN 800 MG TABLET PO SCH ×2 (02:42→09:21)
--- NOTE | 2016-12-24 06:00 | L&D General Admission ---
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: [facility] (12/22/2016 16:29:Dorita Rucker RN) Height (in): 62 (12/22/2016 20:40:QS system process) ALLERGIES Medication Allergy: No (12/22/2016 16:29:Dorita Rucker RN) Medication Allergies: No Known Allergies (12/22/2016) (12/22/2016 18:27:QS system process) Latex Allergy: No Latex Allergies (12/22/2016 16:29:Dorita Rucker RN) COMMUNICATION Primary Language: Canadian (12/22/2016 16:29:Dorita Rucker RN) Medical Tx Preferred Language: Canadian (12/22/2016 16:29:Dorita Rucker RN) DEMOGRAPHICS Address: [address] [place] [address] [place] [address] (12/01/2016 15:35:QS system process) Zipcode: [address] (12/01/2016 15:35:QS system process) Home (12/01/2016 15:35:QS system process) SSN: [id number] (12/01/2016 15:35:QS system process) Next of Kin Name: SEAN DE LEON (12/01/2016 15:35:QS system process) Next of Kin (12/01/2016 15:35:QS system process) Next of Kin Relationship: OR (12/01/2016 15:35:QS system process) Date of : 1990 (12/01/2016 15:35:QS system process) Marital Status: Single (12/01/2016 15:35:QS system process) Sex: Female (12/01/2016 15:35:QS system process) Race: Other (12/01/2016 15:35:QS system process) Ethnicity: Non- or (12/01/2016 15:35:QS system process) Mandaen: None (12/01/2016 15:35:QS system process) DRUG AND ALCOHOL USE Alcohol: No (12/22/2016 16:29:Dorita Rucker RN) Cigarettes: Former Smoker. [id number] (12/22/2016 16:29:Dorita Rucker RN) Marijuana: No (12/22/2016 16:29:Dorita Rucker RN) Cocaine: No (12/22/2016 16:29:Dorita Rucker RN) Other Illicit Drugs: No (12/22/2016 16:29:Dorita Rucker RN) VACCINE HISTORY Influenza Vaccine: Yes (12/22/2016 16:29:Dorita Rucker RN) Pneumococcal Vaccine: No (12/22/2016 16:29:Dorita Rucker RN) Tetanus Vaccine: Uncertain (12/22/2016 16:29:Dorita Rucker RN) Tdap Vaccine: Uncertain (12/22/2016 16:29:Dorita Rucker RN) Hepatitis B Vaccine: Uncertain (12/22/2016 16:29:Dorita Rucker RN) Adjunct Professor: [facility] (12/22/2016 16:29:Dorita Rucker RN) Feeding Preference: Both (12/22/2016 16:29:Dorita Rucker RN) Benefit of Breast Feed Discussed: Yes (12/22/2016 16:29:Dorita Rucker RN) Circumcision: No (12/22/2016 16:29:Dorita Rucker RN) Classes Attended: No (12/22/2016 16:29:Dorita Rucker RN) Tubal Ligation: No (12/22/2016 16:29:Dorita Rucker RN) Tubal Authorization Signed: N/A (12/22/2016 16:29:Dorita Rucker RN) Consent: Yes (12/22/2016 16:29:Dorita Rucker RN) Consent Signed: Yes (12/22/2016 16:29:Dorita Rucker RN) Pain Management Plans: Epidural (12/22/2016 16:29:Dorita Rucker RN) Plans for Labor and Delivery: None (12/22/2016 16:29:Dorita Rucker RN) Support Person: Sean Currie (12/22/2016 16:29:Dorita Rucker RN) Support Person Relationship: Significant Other (12/22/2016 16:29:Dorita Rucker RN) Cultural/Spritual Practice: No (12/22/2016 16:29:Dorita Rucker RN) Spir/Cult Dietary Needs: No (12/22/2016 16:29:Dorita Rucker RN) LIVING SITUATION/DISCHARGE PLAN Living Arrangements: House (12/22/2016 16:29:Dorita Rucker RN) Adequate Access to:: Electric; Heat; Refrigeration; Plumbing/Running water; Phone; Transportation (12/22/2016 16:29:Dorita Rucker RN) WIC Program: No (12/22/2016 16:29:Dorita Rucker RN) 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: FOB (12/22/2016 16:29:Dorita Rucker RN) Person to Help after Discharge: FOB (12/22/2016 16:29:Dorita Rucker RN) Currently Using Commun Resources: No (12/22/2016 16:29:Dorita Rucker RN) Outside Agency/Cattle Brander: No (12/22/2016 16:29:Dorita Rucker RN) Car Seat for Discharge: Yes (12/22/2016 16:29:Dorita Rucker RN) Adoption Requested: No (12/22/2016 16:29:Dorita Rucker RN) Pt Contact w/infant Post : N/A (12/22/2016 16:29:Dorita Rucker RN) LABS Blood Type: O Positive (12/22/2016 16:29:Dorita Rucker RN) Antibody Screen: negative (12/22/2016 16:29:Dorita Rucker RN) Hemoglobin: 10.9 L (12/23/2016 07:14:QS system process) Hematocrit: 32.5 L (12/23/2016 07:14:QS system process) MCV: 95 (12/23/2016 07:14:QS system process) Group Beta Strep: negative (12/22/2016 16:29:Dorita Rucker RN) Gonorrhea: Negative (12/22/2016 16:29:Dorita Rucker RN) Chlamydia: Negative (12/22/2016 16:29:Dorita Rucker RN) RPR/VDRL: Nonreactive (12/22/2016 16:29:Dorita Rucker RN) Hepatitis B: Negative (12/22/2016 16:29:Dorita Rucker RN) Rubella: Immune (12/22/2016 16:29:Dorita Rucker RN) OB/PREVIOUS HISTORY Current Procedures: Ultrasound; NST (12/22/2016 16:29:Dorita Rucker RN) History of Previous : No (12/22/2016 16:29:Dorita Rucker RN) History of Gestational Diabetes: No (12/22/2016 16:29:Dorita Rucker RN) History of PIH: No (12/22/2016 16:29:Dorita Rucker RN) History of Incompetent Cervix: No (12/22/2016 16:29:Dorita Rucker RN) History of Placenta Previa/Abrup: No (12/22/2016 16:29:Dorita Rucker RN) History of Macrosomia: No (12/22/2016 16:29:Dorita Rucker RN) History of IUGR: No (12/22/2016 16:29:Dorita Rucker RN) History of Hemorrhage: No (12/22/2016 16:29:Dorita Rucker RN) History of Loss/Stillborn: No (12/22/2016 16:29:Dorita Rucker RN) History of : No (12/22/2016 16:29:Dorita Rucker RN) History of D (Rh) Sensitization: No (12/22/2016 16:29:Dorita Rucker RN) History Recurrent Loss/Stillborn: No (12/22/2016 16:29:Dorita Rucker RN) History Depression/PP Depression: No (12/22/2016 16:29:Dorita Rucker RN) History of Uterine Anomaly/BENJIE: No (12/22/2016 16:29:Dorita Rucker RN) History of Infertility: No (12/22/2016 16:29:Dorita Rucker RN) History of ART Treatment: No (12/22/2016 16:29:Dorita Rucker RN) History of BENJIE: No (12/22/2016 16:29:Dorita Rucker RN) Comments Obstetrical History: G1: current (12/22/2016 16:29:Dorita Rucker RN) MEDICAL HISTORY Med Hx Diabetes: No (12/22/2016 16:29:Dorita Rucker RN) Med Hx Hypertension: No (12/22/2016 16:29:Dorita Rucker RN) Med Hx Heart Disease: No (12/22/2016 16:29:Dorita Rucker RN) Med Hx Autoimmune Disorder: No (12/22/2016 16:29:Dorita Rucker RN) Med Hx Kidney Disease/UTI: No (12/22/2016 16:29:Dorita Rucker RN) Med Hx Neurologic/Epilepsy: No (12/22/2016 16:29:Dorita Rucker RN) Med Hx Psychiatric Disorders: No (12/22/2016 16:29:Dorita Rucker RN) Med Hx Hepatitis/Liver Disease: No (12/22/2016 16:29:Dorita Rucker RN) Med Hx Varicosities/Phlebitis: No (12/22/2016 16:29:Dorita Rucker RN) Med Hx Thyroid Dysfunction: No (12/22/2016 16:29:Dorita Rucker RN) Med Hx Trauma/Violence: No (12/22/2016 16:29:Dorita Rucker RN) Med Hx Blood Transfusion: No (12/22/2016 16:29:Dorita Rucker RN) Med Hx Pulmonary (Asthma,TB): No (12/22/2016 16:29:Dorita Rucker RN) Med Hx Breast: No (12/22/2016 16:29:Dorita Rucker RN) Med Hx 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 Surgery: No (12/22/2016 16:29:Dorita Rucker RN) Med Hx Hospitalization/Surgery: No (12/22/2016 16:29:Dorita Rucker RN) Med Hx Anesthetic Complications: No (12/22/2016 16:29:Dorita Rucker RN) Med Hx Abnormal Pap Smear: No (12/22/2016 16:29:Dorita Rucker RN) Other Medical Diseases: No (12/22/2016 16:29:Dorita Rucker RN) Med Hx Significant Family Hx: No (12/22/2016 16:29:Dorita Rucker RN) Details of Med/Surg Hx: anemia (12/22/2016 16:29:Dorita Rucker RN) INFECTIOUS HISTORY Inf Hx Gonorrhea: No (12/22/2016 16:29:Dorita Rucker RN) Inf Hx Chlamydia: No (12/22/2016 16:29:Dorita Rucker RN) Inf Hx Syphilis: No (12/22/2016 16:29:Dorita Rucker RN) Inf Hx HIV/AIDS: No (12/22/2016 16:29:Dorita Rucker RN) Inf Hx Human Papilloma Virus: No (12/22/2016 16:29:Dorita Rucker RN) Inf Hx Pt/Partner Genital Herpes: No (12/22/2016 16:29:Dorita Rucker RN) Inf Hx Tuberculosis/Exposure: No (12/22/2016 16:29:Dorita Rucker RN) Inf Hx Hepatitis B,C: No (12/22/2016 16:29:Dorita Rucker RN) Inf Hx Rash or Viral Illness: No (12/22/2016 16:29:Dorita Rucker RN) GENETIC HISTORY Gen Hx Age >=35 at SUNIL: No (12/22/2016 16:29:Dorita Rucker RN) Gen Hx Thalassemia: No (12/22/2016 16:29:Dorita Rucker RN) Gen Hx Congenital Heart Defect: No (12/22/2016 16:29:Dorita Rucker RN) Gen Hx Neural Tube Defect: No (12/22/2016 16:29:Dorita Rucker RN) Gen Hx Down's Syndrome: No (12/22/2016 16:29:Dorita Rucker RN) Gen Hx Garry-Sachs: No (12/22/2016 16:29:Dorita Rucker RN) Gen Hx Donn: No (12/22/2016 16:29:Dorita Rucker RN) Gen Hx Familial Dysautonomia: No (12/22/2016 16:29:Dorita Rucker RN) Gen Hx Sickle Cell Disease/Trait: No (12/22/2016 16:29:Dorita Rucker RN) Gen Hx Hemophilia/Blood Disorder: No (12/22/2016 16:29:Dorita Rucker RN) Gen Hx Muscular Dystrophy: No (12/22/2016 16:29:Dorita Rucker RN) Gen Hx Cystic Fibrosis: No (12/22/2016 16:29:Dorita Rucker RN) Gen Hx Huntingtons Chorea: No (12/22/2016 16:29:Dorita Rucker RN) Gen Hx Mental Retardation/Autism: No (12/22/2016 16:29:Dorita Rucker RN) Gen Hx Tested for Fragile X: No (12/22/2016 16:29:Dorita Rucker RN) Gen Hx Other Inher/Chromosomal: No (12/22/2016 16:29:Dorita Rucker RN) Gen Hx Maternal Metabolic DO: No (12/22/2016 16:29:Dorita Rucker RN) Gen Hx Pt Father or FOB Defect: No (12/22/2016 16:29:Dorita Rucker RN) Gen Hx Other Genetic History: No (12/22/2016 16:29:Dorita Rucker RN) Gen Hx Drugs/Meds since LMP: Yes (12/22/2016 16:29:Dorita Rucker RN) Gen Hx Medications: PNV, iron (12/22/2016 16:29:Dorita Rucker RN)
--- NOTE | 2016-12-24 06:00 | L&D Current Admission ---
Current Admit Datetime Report Generated by CPN: 12/24/2016 06:00 ADMISSION INFORMATION Reason for Admission: Onset of Labor (12/22/2016 16:32:Dorita Rucker RN) Chief Complaint: Contractions (12/22/2016 16:30:Dorita Rucker RN) Method of Arrival: Ambulatory (12/22/2016 16:32:Dorita Rucker RN) Admitted From: Home (12/22/2016 16:32:Dorita Rucker RN) Reason for Induction: Not Applicable (12/22/2016 16:32:Dorita Rucker RN) Records Available: Yes (12/22/2016 16:32:Dorita Rucker RN) General Admission Information: Reviewed (12/22/2016 16:32:Dorita Rucker RN) General Admission Reviewed By: Keyona Rucker RN (12/22/2016 16:32:Dorita Rucker RN) BELONGINGS/ADVANCED DIRECTIVES Valuables/Personal Effects: None (12/22/2016 16:32:Dorita Rucker RN) Other Belongings: see consents (12/22/2016 16:32:Dorita Rucker RN) Disposition of Belongings: Kept with Patient (12/22/2016 16:32:Dorita Rucker RN) Advance Direct for Healthcare: No, and Wants No Information (12/22/2016 16:32:Dorita Rucker RN) Durable Power of [place]: No (12/22/2016 16:32:Dorita Rucker RN) Living Will: No (12/22/2016 16:32:Dorita Rucker RN) Organ Donor: Yes (12/22/2016 16:32:Dorita Rucker RN) Pt Rights Information Given: Yes (12/22/2016 16:32:Dorita Rucker RN) Pt Understands Pt Rights: Yes (12/22/2016 16:32:Dorita Rucker RN) LEARNING ASSESSMENT Knowledge Level: Understands L_D Process; Understands Care Activities; Had Pre-Hospital Education (12/22/2016 16:32:Dorita Rucker RN) Barriers to Learning: None (12/22/2016 16:32:Dorita Rucker RN) Learning Readiness: Motivated (12/22/2016 16:32:Dorita Rucker RN) Learns Best By: 1 to 1 Instruction (12/22/2016 16:32:Dorita Rucker RN) Learning Needs: Labor and Delivery Process; Pain Management; Symptoms to Report; Treatment Plan; Medication; Diagnosis; Nutrition; Equipment; Infant Care; Community Resources (12/22/2016 16:32:Dorita Rucker RN) DOMESTIC VIOLANCE SCREENING Dom Viol Threatened/Hurt: No (12/22/2016 16:32:Dorita Rucker RN) Hx of Abuse/Neglect past 2yrs: No (12/22/2016 16:32:Dorita Rucker RN) Feel Unsafe Going Home: No (12/22/2016 16:32:Dorita Rukcer RN) Addt'l Observ Indicating Abuse: No (12/22/2016 16:32:Doriat Rucker RN) Reason Unable to Complete Screen: N/A, Screen Completed (12/22/2016 16:32:Dorita Rucker RN) Considered Personal Harm/Suicide: No (12/22/2016 16:32:Dorita Rucker RN) NUTRITIONAL/FUNCTIONAL SCREENING Problem with Appetite >5 Days: No (12/22/2016 16:32:Dorita Rucker RN) Chew/Swallow Difficulties: No (12/22/2016 16:32:Dorita Rucker RN) Inappropriate Wt Gain/Loss: No (12/22/2016 16:32:Dorita Rucker RN) Presence Skin Breakdown/Ulcer: No (12/22/2016 16:32:Dorita Rucker RN) Special Diet: No (12/22/2016 16:32:Dorita Rucker RN) Pt Requests Roller Mill Operator Visit: No (12/22/2016 16:32:Dorita Rucker RN) Hx of Any of the Following?: N/A (12/22/2016 16:32:Dorita Rucker RN) New Diagnosis of: N/A (12/22/2016 16:32:Dorita Rucker RN) Requires Assist w/Ambulation: No (12/22/2016 16:32:Dorita Rucker RN) Uses Assist Device to Ambulate: No (12/22/2016 16:32:Dorita Rucker RN) Pt Requires Help w/ADL's: No (12/22/2016 16:32:Dorita Rucker RN)
[2016-12-24 07:18] LABS: ABSOLUTE EOSINOPHILS # (AUTO) 0.1 10^3/uL (0.0-0.6); ABSOLUTE LYMPHOCYTES (AUTO) 2.7 10^3/uL (0.5-4.7); ABSOLUTE NEUT (AUTO) 10.2 10^3/uL (1.7-8.2); BASOPHILS % (AUTO) 0.3 % (0-2); EOSINOPHILS % (AUTO) 0.9 % (0-6); HEMATOCRIT 29.6 % (36.0-47.0); HEMOGLOBIN 9.8 g/dL (12.0-15.5); HGB HCT DIFFERENCE -0.2; LYMPHOCYTES % (AUTO) 19.1 % (13-45); MEAN CORPUSCULAR HEMOGLOBIN 31.7 pg (27.0-33.4); MEAN CORPUSCULAR HGB CONC 33.2 g/dL (32.0-36.0); MEAN CORPUSCULAR VOLUME 96 fl (80-97); MONOCYTES % (AUTO) 7.3 % (3-13); RED CELL DISTRIBUTION WIDTH 14.1 % (11.5-14.0); SEGMENTED NEUTROPHILS % (AUTO) 72.4 % (42-78)
[2016-12-24] MEDS: FERROUS SULFATE 325 MG TABLET PO SCH (09:21)
[2016-12-24] MEDS: PRENATAL VITAMIN W-O CA NO5/FE FUMARATE/FA CAPSULE PO SCH (09:21)
[2016-12-24] MEDS: SENNOSIDES/DOCUSATE 8.6-50 MG 1 EACH TABLET PO SCH (09:21)
[2016-12-24] MEDS: DOCUSATE SODIUM 100 MG CAPSULE PO SCH (09:21)
[2016-12-24 09:42] VITALS: BP 118/68
--- NOTE | 2016-12-24 11:49 | PDOC DISCHARGE SUMMARY ---
Final Diagnosis Discharge Date: 12/24/16 - Final Diagnosis (1) Vaginal delivery Is this a current diagnosis for this admission?: Yes Discharge Data - Discharge Medication Home Medications: Pnv with Ca,No.72/Iron/FA [Pnv Plus Multivit Tab] 1 each PO DAILY 12/22 Reason(s) for Admission: Onset of Labor Procedures: NST Intrapartum Procedure(s): Spontaneous Vaginal Delivery Complication(s): Laceration-Vaginal, Laceration-Perineal Laceration-Degree: 2nd - Diagnosis Test Laboratory: Temp Pulse Resp BP Pulse Ox 98.1 F 49 L 15 112/59 L 100 12/23/16 07:26 12/23/16 07:26 12/23/16 07:26 12/23/16 07:26 12/23/16 07:26 12/22/16 12/22/16 12/23/16 16:47 22:30 07:14 RBC 3.83 3.44 L Hgb 12.0 10.9 L Hct 36.4 32.5 L Urine Opiates Screen NEGATIVE - Discharge information/Instructions Discharge Activity: Balance Activity w/Rest, Pelvic Rest, No tub bath Discharge Diet: Regular Disposition: HOME, SELF-CARE Follow up with: [facility] in: 4, Weeks
== END 2016-12-24 12:40 | disposition home or self-care (01) | DRG 775 ==
LOC: LC 16:11 → LR 16:26 → 2S 20:30
PROVIDERS: ADMIT Obstetrics & Gynecology; ATTEND Obstetrics & Gynecology
PROC: 10E0XZZ Delivery of Products of Conception, External Approach (ICD-10-PCS; principal; 2016-12-22)
PROC: 0KQM0ZZ Repair Perineum Muscle, Open Approach (ICD-10-PCS; 2016-12-22)
PROC: 4A1HXCZ Monitoring of Products of Conception, Cardiac Rate, External Approach (ICD-10-PCS; 2016-12-22)
DX: O62.3 Precipitate labor (principal); O70.1 Second degree perineal laceration during delivery; O99.02 Anemia complicating childbirth; D64.9 Anemia, unspecified; Z3A.39 39 weeks gestation of pregnancy; Z37.0 Single live birth; Z87.891 Personal history of nicotine dependence
CPT/HCPCS: 36415; 59025; 80307; 81005; 85025; 85027; 86592; 86850; 86900; 86901; J2590; J3490

== ENCOUNTER 2019-09-12 05:33 | Inpatient (IN) | payer OTHER ==
[2019-09-12] MEDS ORDERED: LIDOCAINE 1% INJ-PF (10 MG/ML) 30 ML SDV ONE (05:53)
[2019-09-12] MEDS ORDERED: OXYTOCIN 10 UNIT/ML VIAL ONE (05:53)
[2019-09-12] MEDS ORDERED: OXYTOCIN/NORMAL SALINE 20 UNIT/1,000 ML RTUINJ ONE (05:53)
[2019-09-12] MEDS ORDERED: MISOPROSTOL 0.2 MG TABLET ONE (05:53)
[2019-09-12 05:55] LABS: APPEARANCE,URINE SLIGHTLY-CLOUDY; BILIRUBIN,URINE NEGATIVE (NEGATIVE); COLOR,URINE YELLOW; GLUCOSE, URINE NEGATIVE (NEGATIVE); KETONES,URINE NEGATIVE (NEGATIVE); LEUKOCYTE ESTERASE,URINE NEGATIVE (NEGATIVE); NITRITE,URINE NEGATIVE (NEGATIVE); PROTEIN,URINE NEGATIVE (NEGATIVE); URINE SPECIFIC GRAVITY 1.011; UROBILINOGEN,URINE NEGATIVE mg/dL (<2.0)
--- NOTE | 2019-09-12 06:14 | Admission Physical ---
Datetime Report Generated by CPN: 09/12/2019 06:14 CURRENT ADMISSION Chief Complaint: Uterine Contractions Indication for Induction: Not Applicable Admit Impression : Term, Intrauterine Admit Plan: Initiate Labor Protocol ALLERGIES Medication Allergies: No Medication Allergies: No Known Allergies (09/12/2019) Latex: No Latex Allergies OBSTETRICAL HISTORY EDC: 09/14/2019 00:00 : 2 Para: 1 Term: 1 : 0 SAB: 0 IAB: 0 Ectopic: 0 Livin Cesareans: 0 VBACs: 0 Multiple Births: 0 Gestational Diabetes: No Rh Sensitization: No Incompetent Cervix: No BENJIE: No Infertility: No ART Treatment: No Uterine Anomaly: No IUGR: No Hx Previous C/S: No Macrosomia: No Hx Loss/Stillborn: No PIH: No Hx : No Placenta Previa/Abruption: No Depression/PP Depression: No PTL/PROM: No Post Hemorrhage: No Obstetrical History Comments: G1- 2016 G2- current SEE RECORDS Alcohol: No Marijuana : No Cocaine: No Other Illicit Drugs: No Cigarettes: Never Smoker. 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 Surgery: No Heart Disease: No Hosp/Surgery: No Autoimmune Disorder: No Anesthetic Complications: No Kidney Disease: No Abnormal Pap Smear: No Neuro/Epilepsy: No Psychiatric Disorders: No Other Medical Diseases: No Hepatitis/Liver Disease: No Significant Family History: No Varicosities/Phlebitis: No Trauma/Violence : No Thyroid Dysfunction: No INFECTIOUS HISTORY Gonorrhea: No Genital Herpes: No Chlamydia: No Tuberculosis: No Syphilis: No Hepatitis: No HIV/AIDS Exposure: No Rash or Viral Illness: No HPV: No PHYSICAL EXAM General: Normal HEENT: Normal Neurologic: Normal Thyroid: Normal Heart: Normal Lungs: Normal Breast: Deferred Back: Normal Abdomen: Normal Genitourinary Exam: Normal Extremities: Normal DTRs: Normal Pelvic Type: Adequate FETUS A EGA: 39.5 INFORMED CONSENT Signature: with User ID: [email or web address]
[2019-09-12 06:24] LABS: URINE BARBITURATES SCREEN NEGATIVE; URINE BENZODIAZEPINES SCREEN NEGATIVE
[2019-09-12 06:57] LABS: URINE AMPHETAMINES SCREEN NEGATIVE; URINE MARIJUANA (THC) SCREEN NEGATIVE; URINE METHADONE SCREEN NEGATIVE; URINE PHENCYCLIDINE SCREEN NEGATIVE
[2019-09-12 06:59] LABS: URINE COCAINE SCREEN NEGATIVE
[2019-09-12] MEDS ORDERED: DIPH/PERTUSS(ACELL)/TETANUS VAC/PF 0.5 ML SYR (>=10YO) IM PRN (07:11)
[2019-09-12] MEDS ORDERED: GLYCERIN/WITCH HAZEL LEAF 1 EACH MED..WIPE TP PRN (07:11)
[2019-09-12] MEDS ORDERED: PROMETHAZINE HCL 25 MG TABLET PO PRN (07:11)
[2019-09-12] MEDS ORDERED: OXYTOCIN/NORMAL SALINE 20 UNIT/1,000 ML RTUINJ IV PRN (07:11)
[2019-09-12] MEDS ORDERED: PROMETHAZINE HCL INJ 25 MG/1 ML VIAL IV PRN (07:11)
[2019-09-12] MEDS ORDERED: BENZOCAINE/MENTHOL AEROSOL SPRAY 56 ML TOP PRN (07:11)
[2019-09-12] MEDS ORDERED: DIBUCAINE 1% OINTMENT 56 GM TP PRN (07:11)
[2019-09-12] MEDS ORDERED: PROMETHAZINE HCL 25 MG SUPP.RECT PR PRN (07:11)
[2019-09-12] MEDS ORDERED: DIPHENHYDRAMINE HCL 25 MG CAPSULE PO PRN (07:11)
[2019-09-12] MEDS ORDERED: ACETAMINOPHEN WITH CODEINE #3 TABLET PO PRN (07:11)
[2019-09-12] MEDS ORDERED: ACETAMINOPHEN 650 MG SUPP.RECT PR PRN (07:11)
[2019-09-12] MEDS ORDERED: NA PHOS,M-B/NA PHOS,DI-BA (ADULT) 133 ML ENEMA PR PRN (07:11)
[2019-09-12] MEDS ORDERED: MEASLES,MUMPS&RUBELLA VACC/PF 0.5 ML VIAL SUBCUT PRN (07:11)
[2019-09-12] MEDS ORDERED: PSEUDOEPHEDRINE HCL 30 MG TABLET PO PRN (07:11)
[2019-09-12] MEDS ORDERED: MAGNESIUM HYDROXIDE SUSP 30 ML UDCUP PO PRN (07:11)
[2019-09-12] MEDS ORDERED: ZOLPIDEM TARTRATE 5 MG TABLET PO PRN (07:11)
[2019-09-12] MEDS ORDERED: ACETAMINOPHEN WITH CODEINE #3 TABLET ONE (07:45)
[2019-09-12] MEDS ORDERED: IBUPROFEN 800 MG TABLET ONE (07:45)
[2019-09-12 08:08] LABS: ABSOLUTE LYMPHOCYTES (AUTO) 1.5 10^3/uL (0.5-4.7); ABSOLUTE MONOCYTES (AUTO) 0.7 10^3/uL (0.1-1.4); BASOPHILS % (AUTO) 0.3 % (0-2); EOSINOPHILS % (AUTO) 0.2 % (0-6); HEMOGLOBIN 11.6 g/dL (12.0-15.5); LYMPHOCYTES % (AUTO) 12.3 % (13-45); MEAN CORPUSCULAR HEMOGLOBIN 30.4 pg (27.0-33.4); MEAN CORPUSCULAR HGB CONC 33.2 g/dL (32.0-36.0); MEAN CORPUSCULAR VOLUME 92 fl (80-97); MONOCYTES % (AUTO) 5.5 % (3-13); PLATELET COUNT 254 10^3/uL (150-450); RED BLOOD COUNT 3.82 10^6/uL (3.72-5.28); RED CELL DISTRIBUTION WIDTH 13.8 % (11.5-14.0); SEGMENTED NEUTROPHILS % (AUTO) 81.7 % (42-78); TOTAL CELLS COUNTED % (AUTO) 100 %; WHITE BLOOD COUNT 12.3 10^3/uL (4.0-10.5)
--- NOTE | 2019-09-12 10:04 | Delivery Summary ---
Del Sum A-C Datetime Report Generated by CPN: 09/12/2019 10:03 DELIVERY PERSONNEL DELIVERY PERSONNEL: [id number] Delivery Doctor:: Tejinder Serrano MD Labor and Delivery Nurse:: Mayela Trinidad RNterritory manager general sales Nurse:: Tello Burnett, RN MATERNAL INFORMATION Delivery Anesthesia: None Medications After Delivery: Pitocin Drip 20 Units/1000ml NSS Delivery QBL: 50 Maternal Complications: Precipitous Labor (<3hrs) LABOR SUMMARY EDC: 09/14/2019 00:00 No. Babies in Womb: 1 Attempted: No Labor Anesthesia: None LABOR INFORMATION Reason for Induction: Not Applicable Onset of Labor: 09/12/2019 04:00 Complete Dilatation: 09/12/2019 06:50 Oxytocin: N/A Group B Beta Strep: negative Steroids Given: None Reason Steroids Not Administered: Not Applicable MEMBRANES Membranes Rupture Method: Artificial Rupture of Membranes: 09/12/2019 06:15 Length of Rupture (hr): 0.75 Amniotic Fluid Color: Clear Amniotic Fluid Amount: Moderate Amniotic Fluid Odor: Normal STAGES OF LABOR Stage 1 hr: 2 Stage 1 min: 50 Stage 2 hr: 0 Stage 2 min: 10 Stage 3 hr: 0 Stage 3 min: 6 Total Time in Labor hr: 3 Total Time in Labor min: 6 VAGINAL DELIVERY Episiotomy: None Laceration #1: Perineal Laceration Extension #1: N/A Laceration Repair: Not Applicable Sponge Count Correct: Yes Sharps Count Correct: Yes CSECTION DELIVERY Primary Indication: N/A Secondary Indication: N/A CSection Incidence: N/A Labor: N/A Elective: N/A CSection Incision: N/A BABY A INFORMATION Delivery Date/Time: 09/12/2019 07:00 Method of Delivery: Vaginal Born in Route : No : N/A Forceps: N/A Vacuum Extraction: N/A Shoulder Dystocia : No PRESENTATION/POSITION BABY A Presentation: Cephalic Cephalic Presentation: Vertex Vertex Position: Left Occipital Anterior Breech Presentation: N/A PLACENTA INFORMATION BABY A Placenta Delivery Time : 09/12/2019 07:06 Placenta Method of Delivery: Spontaneous Placenta Status: Delivered SCORES BABY A Heart Rate 1 min: >100 bpm Resp Effort 1 min: Good Cry Reflex Irritability 1 min: Cough or Sneeze or Pulls Away Muscle Tone 1 min: Active Motion Color 1 min: Blue/Pale SCORE 1 MIN: 8 Heart Rate 5 min: >100 bpm Resp Effort 5 min: Good Cry Reflex Irritability 5 min: Cough or Sneeze or Pulls Away Muscle Tone 5 min: Active Motion Color 5 min: Body [place], Extremities Blue SCORE 5 MIN: 9 INFANT INFORMATION BABY A Gestational Age at Delivery: 39.5 Gestational Status: Full Term- 39- 40.6 Weeks Infant Outcome : Liveborn Condition : Stable Infant Sex: Female IDENTIFICATION BABY A Verification Date/Time: 09/12/2019 07:18 ID Band Number: [id number] Mother's Name Verified: Yes RN Verifying Infant: Allen Iraheta, RN Additional Verifying Personnel: Jefferson Burnett RN WEIGHT/LENGTH BABY A Infant Birthweight (gm): 3250 Infant Weight (lb): 7 Infant Weight (oz): 3 Infant Length (in): 21.00 Length (cm): 53.34 CORD INFORMATION BABY A No. Cord Vessels: 3 Nuchal Cord : N/A Cord Blood Taken: Yes-For Eval (Mom's Blood Type - or O+) Suction: None ASSESSMENT BABY A Infant Complications: None Physical Findings at Delivery: Within Normal Limits Respirations: Appears Normal Skin to Skin: Yes Transferred To: Remains with Mother BABY B INFORMATION : N/A SIGNATURES Signature: with User ID: [email or web address]
[2019-09-12] MEDS: PRENATAL VITAMIN W DHA CAPSULE PO SCH (10:08)
[2019-09-12] MEDS: FAMOTIDINE 20 MG TABLET PO SCH ×2 (10:08→21:44)
[2019-09-12] MEDS: DOCUSATE SODIUM 100 MG CAPSULE PO SCH ×2 (10:08→17:47)
[2019-09-12] MEDS: SENNOSIDES/DOCUSATE 8.6-50 MG 1 EACH TABLET PO SCH (10:09)
[2019-09-12] MEDS: FERROUS SULFATE 325 MG TABLET PO SCH ×2 (10:09→17:47)
[2019-09-12] MEDS: IBUPROFEN 800 MG TABLET PO SCH ×2 (14:44→21:51)
[2019-09-12] MEDS ORDERED: INFLUENZA QUAD (6MOS+) 2019-20 VAC 0.5 ML SYR IM ONE (19:45)
[2019-09-13] MEDS: IBUPROFEN 800 MG TABLET PO SCH ×3 (06:32→21:40)
[2019-09-13 07:32] LABS: HEMATOCRIT 31.6 % (36.0-47.0); HEMOGLOBIN 10.6 g/dL (12.0-15.5); MEAN CORPUSCULAR HEMOGLOBIN 30.8 pg (27.0-33.4); MEAN CORPUSCULAR HGB CONC 33.5 g/dL (32.0-36.0); MEAN CORPUSCULAR VOLUME 92 fl (80-97); PLATELET COUNT 229 10^3/uL (150-450); RED BLOOD COUNT 3.44 10^6/uL (3.72-5.28); RED CELL DISTRIBUTION WIDTH 13.7 % (11.5-14.0); WHITE BLOOD COUNT 12.2 10^3/uL (4.0-10.5)
[2019-09-13] MEDS: DOCUSATE SODIUM 100 MG CAPSULE PO SCH ×2 (09:23→17:13)
[2019-09-13] MEDS: SENNOSIDES/DOCUSATE 8.6-50 MG 1 EACH TABLET PO SCH (09:23)
[2019-09-13] MEDS: FERROUS SULFATE 325 MG TABLET PO SCH ×2 (09:23→17:13)
[2019-09-13] MEDS: FAMOTIDINE 20 MG TABLET PO SCH ×2 (09:24→21:40)
[2019-09-13] MEDS: PRENATAL VITAMIN W DHA CAPSULE PO SCH (09:24)
--- NOTE | 2019-09-13 11:23 | PDOC PROGRESS REPORT ---
Subjective-OB Progress Note for:: 09/13/19 Subjective: Pt doing well, no concerns. She reports light bleeding, reg diet and voiding without difficulty. Physical Exam (OB) Vital Signs: Temp Pulse Resp BP Pulse Ox 97.6 F 55 L 16 105/63 99 09/13/19 07:48 09/13/19 07:48 09/13/19 07:48 09/13/19 07:48 09/13/19 07:48 Intake & Output 09/12/19 09/13/19 09/14/19 06:59 06:59 05:59 Weight 73.3 kg - PIH/Pre-Eclampsia Clonus: Negative Headache: Absent Epigastric Pain: No Visual Changes: No - Lochia Lochia Amount: Scant < 10 ml Lochia Color: Rubra/Red - Abdomen Description: Soft Hernia Present: No Fundal Description: Firm, Midline Fundal Height: u/u - u/2 Objective-Diagnostic Laboratory: 09/13/19 06:47 09/13/19 06:47 WBC 12.2 H RBC 3.44 L Hgb 10.6 L Hct 31.6 L MCV 92 MCH 30.8 MCHC 33.5 RDW 13.7 Plt Count 229 Assessment and Plan(PN) - Assessment and Plan (1) Vaginal delivery Is this a current diagnosis for this admission?: Yes - Time Spent with Patient Time with patient: Less than 15 minutes Medications reviewed and adjusted accordingly: Yes - Disposition Anticipated Discharge: Home Within: within 24 hours
[2019-09-14] MEDS: IBUPROFEN 800 MG TABLET PO SCH (05:50)
[2019-09-14 08:17] VITALS: BP 116/67
[2019-09-14] MEDS: PRENATAL VITAMIN W DHA CAPSULE PO SCH (09:58)
[2019-09-14] MEDS: FERROUS SULFATE 325 MG TABLET PO SCH (09:58)
[2019-09-14] MEDS: FAMOTIDINE 20 MG TABLET PO SCH (09:59)
[2019-09-14] MEDS: SENNOSIDES/DOCUSATE 8.6-50 MG 1 EACH TABLET PO SCH (09:59)
[2019-09-14] MEDS: DOCUSATE SODIUM 100 MG CAPSULE PO SCH (09:59)
--- NOTE | 2019-09-14 10:08 | PDOC DISCHARGE SUMMARY ---
Impression - Admit/DC Date/PCP Admission Date/Primary Care Provider: 09/12/19 06:03 OMARI LYLE MD Discharge Date: 09/14/19 - Discharge Diagnosis (1) Vaginal delivery Is this a current diagnosis for this admission?: Yes - Additional Information Resuscitation Status: Full Code Discharge Diet: Regular Discharge Activity: Balance Activity w/Rest, Pelvic Rest Referrals: OMARI LYLE MD [Primary Care Provider] - Prescriptions: Ibuprofen [Motrin 800 mg Tablet] 800 mg PO Q8HP PRN #60 tablet PRN Reason: Home Medications: Pnv,Calcium 72/Iron/Folic Acid [Pnv Plus Multivit Tab] 1 each PO DAILY 12/22/16 Ibuprofen [Motrin 800 mg Tablet] 800 mg PO Q8HP PRN #60 tablet 09/14/19 Results Laboratory Results: WBC 12.2 10^3/uL (4.0-10.5) H 09/13/19 06:47 RBC 3.44 10^6/uL (3.72-5.28) L 09/13/19 06:47 Hgb 10.6 g/dL (12.0-15.5) L 09/13/19 06:47 Hct 31.6 % (36.0-47.0) L 09/13/19 06:47 MCV 92 fl (80-97) 09/13/19 06:47 MCH 30.8 pg (27.0-33.4) 09/13/19 06:47 MCHC 33.5 g/dL (32.0-36.0) 09/13/19 06:47 RDW 13.7 % (11.5-14.0) 09/13/19 06:47 Plt Count 229 10^3/uL (150-450) 09/13/19 06:47 Lymph % (Auto) 12.3 % (13-45) L 09/12/19 07:56 [place] % (Auto) 5.5 % (3-13) 09/12/19 07:56 Eos % (Auto) 0.2 % (0-6) 09/12/19 07:56 Baso % (Auto) 0.3 % (0-2) 09/12/19 07:56 Absolute Neuts (auto) 10.0 10^3/uL (1.7-8.2) H 09/12/19 07:56 Absolute Lymphs (auto) 1.5 10^3/uL (0.5-4.7) 09/12/19 07:56 Absolute Monos (auto) 0.7 10^3/uL (0.1-1.4) 09/12/19 07:56 Absolute Eos (auto) 0.0 10^3/uL (0.0-0.6) 09/12/19 07:56 Absolute Basos (auto) 0.0 10^3/uL (0.0-0.2) 09/12/19 07:56 Seg Neutrophils % 81.7 % (42-78) H 09/12/19 07:56 Urine Color YELLOW 09/12/19 05:39 Urine Appearance SLIGHTLY-CLOUDY 09/12/19 05:39 Urine pH 6.0 (5.0-9.0) 09/12/19 05:39 Ur Specific [place] 1.011 09/12/19 05:39 Urine Protein NEGATIVE mg/dL (NEGATIVE) 09/12/19 05:39 Urine Glucose (UA) NEGATIVE mg/dL (NEGATIVE) 09/12/19 05:39 Urine Ketones NEGATIVE mg/dL (NEGATIVE) 09/12/19 05:39 Urine Blood NEGATIVE (NEGATIVE) 09/12/19 05:39 Urine Nitrite NEGATIVE (NEGATIVE) 09/12/19 05:39 Urine Bilirubin NEGATIVE (NEGATIVE) 09/12/19 05:39 Urine Urobilinogen NEGATIVE mg/dL (<2.0) 09/12/19 05:39 Ur Leukocyte Esterase NEGATIVE (NEGATIVE) 09/12/19 05:39 Urine Ascorbic Acid NEGATIVE (NEGATIVE) 09/12/19 05:39 Urine Opiates Screen NEGATIVE 09/12/19 05:39 Urine Methadone Screen NEGATIVE 09/12/19 05:39 Ur Barbiturates Screen NEGATIVE 09/12/19 05:39 Ur Phencyclidine Scrn NEGATIVE 09/12/19 05:39 Ur Amphetamines Screen NEGATIVE 09/12/19 05:39 U Benzodiazepines Scrn NEGATIVE 09/12/19 05:39 Urine Cocaine Screen NEGATIVE 09/12/19 05:39 U Marijuana (THC) Screen NEGATIVE 09/12/19 05:39 RPR NONREACTIVE (NONREACTIVE) 09/12/19 07:56 Blood Type O POSITIVE 09/12/19 07:56 Antibody Screen NEGATIVE 09/12/19 07:56
== END 2019-09-14 12:53 | disposition home or self-care (01) | DRG 807 ==
LOC: LC 05:33 → LR 06:03 → 2S 09:12
PROVIDERS: ADMIT Obstetrics & Gynecology Gynecology; ATTEND Obstetrics & Gynecology Gynecology
PROC: 10E0XZZ Delivery of Products of Conception, External Approach (ICD-10-PCS; principal; 2019-09-12)
PROC: 10907ZC Drainage of Amniotic Fluid, Therapeutic from Products of Conception, Via Natural or Artificial Opening (ICD-10-PCS; 2019-09-12)
PROC: 3E02340 Introduction of Influenza Vaccine into Muscle, Percutaneous Approach (ICD-10-PCS; 2019-09-14)
DX: O62.3 Precipitate labor (principal); Z37.0 Single live birth; Z23 Encounter for immunization; Z3A.39 39 weeks gestation of pregnancy
CPT/HCPCS: 36415; 80307; 81005; 85025; 85027; 86592; 86850; 86900; 86901; 90686; J2590; J3490